=== PATIENT | female | born 1985 | race Hispanic/Latino ===

== ENCOUNTER 2018-02-26 05:07 | Inpatient (IN) | payer OTHER ==
[2018-02-25 17:00] LABS: Urine Appearance CLOUDY; Urine Bilirubin NEGATIVE (NEG); Urine Blood NEGATIVE (NEG); Urine Color YELLOW; Urine Glucose NEGATIVE (NEG); Urine Protein NEGATIVE (NEG); Urine Urobilinogen 0.2 mg/dL (0.2-1.0)
[2018-02-25 17:06] LABS: Absolute Lymphocytes (CBC) 2.8 K/uL (0.7-4.9); Absolute Monocytes 0.8 K/uL (0.1-1.3); Absolute Neutrophil 5.7 K/uL (1.8-8.0); Basophils % 0.2 % (0-1.3); Eosinophils % 0.6 % (0-4.4); Lymphocytes % 29.4 % (15.3-44.8); MPV 10.7 fL (7.6-11.3); RBC Red Blood Cell Count 3.71 M/uL (3.86-4.86)
[2018-02-25 17:15] LABS: Urine Microscopic Reflex ORDER UMIC
[2018-02-25 17:17] LABS: Protime INR 0.9
[2018-02-25 17:17] LABS: Urine Bacteria >50 /HPF (<20); Urine Culture Reflex Order REFLEXED; Urine RBC <5 /HPF (NONE SEEN)
--- NOTE | 2018-02-25 20:31 | PREOPHP ---
Date of Admission: 02/26/2018 History Of Present Illness: Sydney Valdez is a 33-year-old female, 4, para 2, AB1. Now by b est estimates ultrasound and Dr. Rae in [place], we think she is at 37 weeks, probably 37 weeks 1 day, tomorrow. She has twins with the first twin B in breech persistently and the first twin having oligohydramnios. She has had [facility] for lung maturity. These are both females and Dr. Rae has suggested delivery at this point. We will proceed with delivery. Full discussion with the patient about infection, blood loss, anesthetic complications, injury to bladder, bowel, ureter, post operative complications, clots in legs, and pneumonia. She knows fully well and this does not consti tute all the possible problems that could occur during or following surgery. We have discussed this on several occasions during her . Family History: Father with hypertension. Mother with diabetes. Allergies: SHE HAS NO ALLERGIES. Physical Examination: HEENT: Clear. Pupils equal, round, and reactive to light and accommodation. Conjunctivae well perf used. No oral, lingual, or buccal lesions. Chest and lungs: Clear. Heart: Without murmurs, thrills, heaves, or rubs. Breasts: Not examined. Abdomen: Very large of course with twins. Extremities: Have +2 or even +3 edema and she has significant varicosities. Cervix: 0.5 cm and the presenting part is again breech and well applied. We will proceed with opera tive delivery tomorrow morning. ARRON/LYNDA Voice ID: [id number]
[2018-02-26] MEDS ORDERED: Ringers Lactate 1,000 ML IV PRN (05:27)
[2018-02-26] MEDS ORDERED: NA CIT/CITRIC AC 30 ML ORAL UDC PO ONE (05:37)
[2018-02-26] MEDS ORDERED: FAMOTIDINE 20 MG/2 ML VIAL IV ONE (05:39)
[2018-02-26] MEDS ORDERED: Ringers Lactate 1,000 ML IV SCH (06:00)
[2018-02-26] MEDS ORDERED: METOCLOPRAMIDE 10 MG/2mL INJ IV SCH (06:00)
--- NOTE | 2018-02-26 07:09 | RAD REPORT ---
EXAM DESCRIPTION: RAD - Abdomen Single View - 02/26/2018 7:02 am CLINICAL HISTORY: Flat plate for position (twin gestation) Pain COMPARISON: No comparisons FINDINGS: The twin on the maternal right is in breech position. The twin on the maternal left appear s to be in a transverse AP position with the head projecting to the left of the lumbar spine.
[2018-02-26] MEDS ORDERED: CEFAZOLIN SODIUM 1 GM/VIAL ONE (07:23)
[2018-02-26] MEDS ORDERED: CEFAZOLIN/SWI 1gm 1 GM/10 ML SYR ONE ×2 (07:23→16:11)
[2018-02-26] MEDS ORDERED: CEFTRIAXONE 1000 MG/VIAL ONE (07:25)
[2018-02-26 07:27] VITALS: BMI 30.4
[2018-02-26] MEDS ORDERED: LIDOCAINE 1% MPF 5 ML VIAL ONE (07:30)
[2018-02-26] MEDS ORDERED: OXYTOCIN 10 UNIT/ML ML IV ONE (07:30)
[2018-02-26] MEDS ORDERED: MORPHINE SULFATE/PF 1 MG/ML (10 ML AMP) ONE (07:39)
[2018-02-26] MEDS ORDERED: CARBOPROST TROME 250 MCG/ML IM ONE (07:39)
[2018-02-26] MEDS ORDERED: METHYLERGONOVINE 0.2MG/ML AMP IM ONE (07:39)
[2018-02-26] MEDS ORDERED: BUPIVACAINE 0.75% (PF) 2 ML SP ONE (07:43)
[2018-02-26] MEDS ORDERED: Phenylephrine HCl 10 MG/ML 1 ML VIAL ONE (07:52)
[2018-02-26] MEDS ORDERED: NS 0.9% VIAL 10 ML ONE (07:52)
[2018-02-26] MEDS ORDERED: CEFAZOLIN/SWI 2gm 2 GM/20 ML SYR IV SCH (08:00)
[2018-02-26] MEDS ORDERED: KETOROLAC 30 MG/ML INJ IV PRN (08:25)
[2018-02-26] MEDS ORDERED: Oxycodone HCl/Acetaminophen 1 TAB TAB PO PRN (08:25)
[2018-02-26] MEDS ORDERED: DIPHENHYDRAMINE 25 MG TAB/CAP PO PRN (08:25)
[2018-02-26] MEDS ORDERED: ONDANSETRON 4 MG/2 ML VIAL IV PRN (08:25)
[2018-02-26] MEDS ORDERED: ACETAMINOPHEN 500 MG TAB PO PRN (08:25)
[2018-02-26] MEDS ORDERED: BISACODYL 10 MG RECTAL SUPP RECT PRN (08:25)
[2018-02-26] MEDS ORDERED: ONDANSETRON 4 MG (ODT) TAB PO PRN (08:25)
[2018-02-26] MEDS ORDERED: KETOROLAC 30 MG/ML INJ IM PRN (08:25)
[2018-02-26] MEDS ORDERED: D5LR 1,000 ML with OXYTOCIN 20 UNIT IV SCH ×2 (09:00)
[2018-02-26] MEDS ORDERED: OXYTOCIN/LR 20 UNIT/1,000 ML BAG IV SCH (09:00)
[2018-02-26] MEDS ORDERED: Ringers Lactate 2,000 ML IV ONE (13:04)
[2018-02-26] MEDS ORDERED: CEFAZOLIN/NS 1gm 1 GM/50 ML BAG IVPB ONE (16:00)
[2018-02-26] MEDS ORDERED: CEFAZOLIN/SWI 1gm 1 GM/10 ML SYR IVP SCH (17:00)
[2018-02-27] MEDS ORDERED: MAGNESIUM HYDROXIDE 8% 30 ML PO PRN (08:25)
--- NOTE | 2018-02-27 11:36 | PN ---
A 33-year-old multiparous female, with known twin gestation, presenting twin breech and with oligohyd ramnios, high risk. Dr. Rae suggested delivery at approximately 37 weeks. The patient underwent pr imary section, low transverse, cervical, spinal block anesthesia. Twin A, 6 pounds 2 ounces . Twin B, 5 pounds 10 ounces, both with Apgars about 9 and 9 at 1 and 5 minutes. Mild uterine hypot onus, 0.2 mg of Methergine IM. Estimated blood loss 1000 to 1100 cc. Ancef given for prophylaxis pr e and postoperatively. Postoperatively, the patient is afebrile. We will discontinue her IV and Fol ey. Begin p.o. intake. H and H with expected minimal change. If she continues to progress well, we will send her home tomorrow. Full dismissal summary given today, we will go over it again tomorrow. Her 2 daughters were in the room. The patient speaks limited Vietnamese, but we went over this in Eng kathi and Haitian. We will go over it again tomorrow. Doing well at this point. ARRON/LYNDA Voice ID: [id number] Report ID: [id number]
[2018-02-27] MEDS: Oxycodone HCl/Acetaminophen 1 TAB TAB PO PRN (20:30)
[2018-02-28] MEDS: Oxycodone HCl/Acetaminophen 1 TAB TAB PO PRN (07:30)
[2018-02-28 07:58] VITALS: BP 106/60; TEMP 97.9
[2018-02-28] MEDS ORDERED: Tdap (Diph,Pertuss(Acell),Tet Vac) 0.5 ML SYR IMVAC ONE (09:37)
--- NOTE | 2018-03-01 04:14 | DS ---
Date of Discharge: 02/28/2018 Hospital Course: Sydney Valdez is 33-year-old, 3, para 2, with twin gestation, at approximat pasquale 37 weeks and 1 day, first twin breech, second twin transverse. Patient underwent primary cesarea n section low transverse cervical, with delivery of twin A, 6 pound 2 ounce female, Apgars 9 and 9; t win B, converted to footling breech and delivered, 5 pounds 10 ounces, Apgars 9 and 9. The cord bloo d was obtained. Placenta was removed. Uterus exteriorized. Cervical os was dilated with ring clamp . Estimated blood loss during the procedure 1000 to 1100 cc. Mildly hypotonic. 0.2 mg of Methergin e IM. Ancef given for prophylaxis pre and postop. Dr. Wright in pediatric attendance. Babies hav e subsequently done quite well. The patient will be dismissed this morning to return to my office ne xt week for staple removal. To report any temperature elevation of 100 degrees or greater, severe pa in, heavy bleeding, or any other type of abnormalities. She is Rh positive, immune to Rubella. No p ost spinal block problems. Dismissed with tramadol for analgesia. She has had her Tdap immunization during the . Final Diagnoses: Intrauterine gestation, 37 weeks 1 day, primary section for twin delivery, spinal block anesthesia, mild uterine hypotonus. ARRON/LYNDA Voice ID: [id number] Report ID: [id number]
--- NOTE | 2018-03-04 18:26 | OP ---
Surgeon: Lewis Masters MD Indication: A 33-year-old, 3, para 2, twin gestation, first twin breech, second twin transve rse, approximately 37 weeks 1 day. primary section. Full preoperative counseling concernin g procedure and possible complications, including infection, blood loss, anesthetic complications, in jury to bladder, bowel, ureter, postoperative complications, clots in legs, pneumonia. Anesthesia: Spinal block anesthesia. Procedure In Detail: Time-out was performed. The patient was prepped and draped in the usual steril e manner. 2 g of Ancef given for prophylaxis. A low transverse uterine incision was created. Incis ion was carried to the fascia. Fascia was incised and incision carried transversely bilaterally. An terior fascial plane was developed with both blunt and sharp dissection. The underlying rectus muscl e was . Peritoneum entered bluntly. Low-transverse uterine incision created. A 6 pound 2 ounce female, Apgars 9 and 9 was delivered without difficulty. Twin B was then converted to a double footling breech and delivered quite easily, Apgars 9 and 9. Placenta was removed. uterus cleared O FF clot and blood and exteriorized. Uterus cleaned off all remaining membranes and placental tissues . Mild uterine hypotonus. 0.2 mg of Methergine IM. estimated blood loss 1100 cc during the procedur e. Uterus closed with a running-locked stitch of 1 chromic. Gutters were cleared of clot and blood. Uterus was replaced in the peritoneal cavity. No further bleeding seen. Muscles reapproximated wi th 0 Vicryl interrupted sutures. The fascia was closed with 1 Vicryl running locked stitch from eith er angle to the midline. Subcutaneous tissue was closed with 2-0 plain. Absorbable elva placed a nd then metal elva placed. She tolerated all procedures well. She was transferred back to her ro in good condition. Final Diagnoses: Intrauterine twin gestation, 37 weeks 1 day, primary section with delivery of viable female twins, mild uterine hypotonus. Spinal block anesthesia. ARRON/LYNDA Voice ID: [id number] Report ID: [id number]
== END 2018-02-28 12:10 | disposition home or self-care (01) | DRG 765 ==
LOC: 2ND-WC 05:07
PROVIDERS: ADMIT Specialist; ATTEND Specialist
PROC: 10D00Z1 Extraction of Products of Conception, Low, Open Approach (ICD-10-PCS; principal; 2018-02-26 07:30)
DX: O41.03X1 Oligohydramnios, third trimester, fetus 1 (principal); O31.8X31 Other complications specific to multiple gestation, third trimester, fetus 1; O31.8X32 Other complications specific to multiple gestation, third trimester, fetus 2; O32.1XX1 Maternal care for breech presentation, fetus 1; O30.043 Twin pregnancy, dichorionic/diamniotic, third trimester; Z3A.37 37 weeks gestation of pregnancy; Z37.2 Twins, both liveborn; O62.2 Other uterine inertia; O32.2XX2 Maternal care for transverse and oblique lie, fetus 2
CPT/HCPCS: 36415; 74018; 81003; 81015; 85014; 85025; 85610; 85730; 86850; 86900; 86901; 87086; 87088; 88307; 90715; J0690; J2210; J2370; J2405; J2590; J2765

== ENCOUNTER 2019-09-11 05:53 | Inpatient (IN) | payer OTHER, SELFPAY ==
[2019-09-10 17:31] LABS: Absolute Lymphocytes (CBC) 1.8 K/uL (0.7-4.9); Basophils % 0.1 % (0-1.3); Lymphocytes % 20.1 % (15.3-44.8); MPV 10.7 fL (7.6-11.3); RBC Red Blood Cell Count 3.79 M/uL (3.86-4.86)
[2019-09-10 17:33] LABS: Protime INR 0.93
[2019-09-10 18:09] LABS: Urine Appearance CLOUDY; Urine Bilirubin NEGATIVE (NEG); Urine Blood NEGATIVE (NEG); Urine Color YELLOW; Urine Glucose NEGATIVE (NEG); Urine Protein NEGATIVE (NEG); Urine Urobilinogen 0.2 mg/dL (0.2-1.0)
[2019-09-10 18:45] LABS: Urine Bacteria >50 /HPF (<20); Urine Culture Reflex Order REFLEXED; Urine Mucus 1+ /HPF (NONE SEEN); Urine RBC <5 /HPF (NONE SEEN)
--- NOTE | 2019-09-10 19:27 | PREOPHP ---
Date of Admission: 09/11/2019 History Of Present Illness: This is a 34-year-old multiparous female, 6, para 4, last pregna ncy twin delivery, 1 miscarriage, is now 40 weeks according to ultrasound done at 22 weeks were used and this is the best dates estimated for due date. Patient is having 5th female. We have discussed control. Right now, she wants to use something temporary such as a nonhormonal IUD a nd can change her mind later if she decides to have another child. She has had basically uneventful . Allergies: THERE ARE NO ALLERGIES. Family History: Father for hypertension. Mother with diabetes. Social History: Patient is nonsmoker. Physical Examination: General: Has had a 15 pounds weight gain during the . Abdomen: Quite large. Baby is quite low, vertex healthy babies. Cervix is fingertip. Baby is stil l high. Extremities: Clear without edema, cyanosis, or clubbing. Heart and Lungs: Clear. Breasts: Had been without masses on previous visits. Assessment And Plan: She wants her and 15-year-old daughter to be with her during surgery. I have no objection. We will proceed with repeat section tomorrow, infection, blood clots i n the legs, injury to internal organs, all have been discussed with the patient on previous visits an d some extent again today. ARRON/LYNDA Voice ID: [id number]
[2019-09-10 22:30] LABS: RPR (Rapid Plasma Reagin) NON-REACT (NON-REACT)
[2019-09-11] MEDS ORDERED: Ringers Lactate 1,000 ML IV PRN (05:55)
[2019-09-11] MEDS ORDERED: NA CIT/CITRIC AC 30 ML ORAL UDC PO ONE (06:00)
[2019-09-11] MEDS ORDERED: Ringers Lactate 1,000 ML IV SCH (06:00)
[2019-09-11] MEDS ORDERED: CEFAZOLIN 1GM (PREMIX IV) 1 GM/50 ML BAG IV SCH (06:00)
[2019-09-11] MEDS ORDERED: METOCLOPRAMIDE 10 MG/2mL INJ ONE (06:14)
[2019-09-11] MEDS ORDERED: NA CIT/CITRIC AC 30 ML ORAL UDC ONE (06:14)
[2019-09-11] MEDS ORDERED: FAMOTIDINE 20 MG/2 ML VIAL IV ONE ×2 (06:15→06:30)
[2019-09-11] MEDS ORDERED: METOCLOPRAMIDE 10 MG/2mL INJ IV SCH (06:30)
[2019-09-11 06:34] VITALS: BMI 28.9
[2019-09-11] MEDS ORDERED: EPHEDRINE SULF 50 MG/ML VIAL ONE (06:53)
[2019-09-11] MEDS ORDERED: FENTANYL CITR 250 MCG/5 ML ONE (06:53)
[2019-09-11] MEDS ORDERED: MORPHINE SULFATE/PF 1 MG/ML (10 ML AMP) ONE (06:53)
[2019-09-11] MEDS ORDERED: Phenylephrine HCl 10 MG/ML 1 ML VIAL ONE (06:53)
[2019-09-11] MEDS ORDERED: OXYTOCIN 10 UNIT/ML ML IV ONE (06:53)
[2019-09-11] MEDS ORDERED: LIDOCAINE 1% MPF 5 ML VIAL ONE (06:54)
[2019-09-11] MEDS ORDERED: CEFAZOLIN/SWI 2gm 2 GM/20 ML SYR ONE ×2 (06:54→15:56)
[2019-09-11] MEDS ORDERED: ONDANSETRON 4 MG/2 ML VIAL ONE (06:54)
[2019-09-11] MEDS ORDERED: NS 0.9% VIAL 20 ML ONE (06:54)
[2019-09-11] MEDS ORDERED: BUPIVACAINE 0.75% (PF) 2 ML SP ONE (06:54)
[2019-09-11] MEDS ORDERED: CEFAZOLIN 2 GM in NA CHLORIDE 0.9% 100 ML IVPB SCH (07:00)
[2019-09-11] MEDS ORDERED: METHYLERGONOVINE 0.2MG/ML AMP IM ONE (07:02)
[2019-09-11] MEDS ORDERED: CARBOPROST TROME 250 MCG/ML IM ONE (07:02)
[2019-09-11] MEDS: OXYTOCIN/LR 20 UNIT/1,000 ML BAG IV SCH ×2 (07:15→20:00)
[2019-09-11] MEDS ORDERED: BISACODYL 10 MG RECTAL SUPP RECT PRN (08:28)
[2019-09-11] MEDS ORDERED: KETOROLAC 30 MG/ML INJ IM PRN (08:28)
[2019-09-11] MEDS ORDERED: ONDANSETRON 4 MG/2 ML VIAL IV PRN (08:28)
[2019-09-11] MEDS ORDERED: KETOROLAC 30 MG/ML INJ IV PRN (08:28)
[2019-09-11] MEDS ORDERED: IBUPROFEN 600 MG TAB PO PRN (08:28)
[2019-09-11] MEDS ORDERED: DIPHENHYDRAMINE 25 MG TAB/CAP PO PRN (08:28)
[2019-09-11] MEDS ORDERED: ONDANSETRON 4 MG (ODT) TAB PO PRN (08:28)
[2019-09-11] MEDS ORDERED: ACETAMINOPHEN 500 MG TAB PO PRN ×2 (08:28)
[2019-09-11] MEDS ORDERED: INFLUENZA VACCINE (for 3y+) 0.5 ML DOSE IMVAC ONE (09:00)
[2019-09-11] MEDS ORDERED: D5LR 1,000 ML with OXYTOCIN 20 UNIT IV SCH ×2 (09:00)
[2019-09-11] MEDS ORDERED: CEFAZOLIN/SWI 2gm 2 GM/20 ML SYR IVP ONE (16:45)
[2019-09-11] MEDS: Oxycodone HCl/Acetaminophen 1 TAB TAB PO PRN (19:45)
[2019-09-12] MEDS: Oxycodone HCl/Acetaminophen 1 TAB TAB PO PRN ×3 (02:14→19:30)
--- NOTE | 2019-09-12 07:48 | PN ---
Postoperatively, the patient is doing quite well. H and H with expected change. Vital signs are nor mal. The patient has no complaints or problems this morning. Yesterday, it was noted that patient h ad blood in the urine prior to the surgery actually red at that point. During surgery, nothing unusu al was seen other than she had an extremely thin lower uterine segment, so it was obvious that we did not get near the bladder during the surgery as you can see the baby through the uterine wall. Posto peratively, the urine still is wilson colored, no bright red blood any more. Nonetheless, we will get a cystogram before we discontinue the Moscoso to make sure everything is okay. Otherwise, if normal, we will discontinue Moscoso and IV, start patient ambulation and anticipate if no problems home tomorro wRossana HELLER/LYNDA Voice ID: [id number] Report ID: [id number]
--- NOTE | 2019-09-12 07:51 | OP ---
Surgeon: Lewis Masters MD Director Of Catering: Dr. Sahni. Anesthesiologist: Dr. Elizalde and associates. Indications: A 34-year-old, 6, para 4, previous for twins, 40 weeks' gestation for repeat section. Infection, blood loss, anesthetic complications, injury to bladder, bowel, or ureter, postoperative complications, clots in legs, and pneumonia discussed. The patient knows f ully well this does not constitute all possible problems that could occur during or following surgery . Anesthesia: Spinal block anesthesia. Description Of Procedure: After time-out, the patient was prepped and draped and placed in the dorsa l supine position. It was noted that there was blood in the Moscoso catheter from insertion and this c ontinued throughout the surgery but did not increase. We suspected mild urethral irritation from the Moscoso insertion. After checking for adequate anesthesia, a Pfannenstiel incision was created over t he previous incision site. The incision was carried to the fascia. The fascia was incised and incis ion carried transversely bilaterally. Anterior and posterior fascial planes were developed with both blunt and sharp dissection. The underlying rectus muscles were . Peritoneum was entered. It was noted there was a very thin lower uterine segment and you could see the baby's hair and head through the incision. A low transverse incision was created well above the bladder and 7-pound 13-ou nce female was delivered without difficulties. Apgars 9 and 9 or possibly 9 and 10. Cord blood was obtained. Placenta was removed manually. Uterus was cleared of clot and blood and exteriorized. Th ere was noted to be significant arterial bleeder in the left angle. This was sutured with 1 chromic running locked stitch and another imbricating stitch for complete hemostasis. After the cervical os was dilated, the uterus was closed. No further bleeding was seen from the suture line. The gutters were cleared of clot and blood. Estimated blood loss was 1000 mL, possibly 1100 mL. Patient's admis giacomo hematocrit was 37. Normal vital signs throughout the procedure. Uterus was replaced in the per itoneal cavity. Muscles were reapproximated with 0 Vicryl interrupted sutures. The fascia was close d with 1 Vicryl running locked stitch from either angle to the midline. Subcutaneous tissue closed w ith 2-0 plain running locked stitch. Absorbable elva were placed and then metal elva. Patient had been given 2 g of Ancef for prophylaxis. Tolerated all procedures well. Transferred back to [facility] room in good condition. Final Diagnoses: Term intrauterine , repeat section, spinal block anesthesia. Mil d hematuria noted prior to surgery. If this continues, we will get a cystogram, but as I have stated , the blood was in the urine prior to the procedure and did not really change afterwards, and at this point, I do not suspect bladder injury. ARRON/LYNDA Voice ID: [id number] Report ID: [id number]
[2019-09-12] MEDS: MAGNESIUM HYDROXIDE 8% 30 ML PO PRN ×2 (09:45→22:01)
--- NOTE | 2019-09-12 12:33 | RAD REPORT ---
EXAM DESCRIPTION: RAD - Cystography - 09/12/2019 12:14 pm CLINICAL HISTORY: blood in urine Pelvic pain COMPARISON: No comparisons FINDINGS: The urinary bladder was filled with contrast the existing Moscoso catheter. Multiple project ions of the urinary bladder were performed showing normal contour without evidence of leakage. As the bladder was slowly empty, no leak was present. No postvoid residual seen. Total fluoro time: 1 minutes 27 seconds. Seven fluoroscopic spot images were obtained. IMPRESSION: Normal cystogram.
[2019-09-13 04:33] VITALS: TEMP 98.7
[2019-09-13] MEDS: Oxycodone HCl/Acetaminophen 1 TAB TAB PO PRN (07:28)
[2019-09-13 07:31] VITALS: BP 101/58
[2019-09-13] MEDS ORDERED: INFLUENZA VACCINE (for 3y+) 0.5 ML DOSE IMVAC ONE (07:55)
[2019-09-15 03:39] LABS: HBsAG Nonreactive (Nonreactive)
--- NOTE | 2019-09-15 14:24 | DS ---
Date of Discharge: 09/13/2019 Sydney Valdez, 34-year-old, 6, para 4, history of twins with repeat section on last delivery for repeat section at 40 weeks. Patient underwent repeat section. Spinal block anesthesia. Delivery of a 7 pounds, 13-ounce female. Apgars 9 and 9. Very thin lower uterin e segment. In fact, the baby's care could be seen through the incision prior to the incision on the uterus. There was noted to be blood in the catheter prior to the procedure and afterwards the bleedi ng stopped from the bladder but a cystogram was done just to verify no injury. In fact normal cystog sonya was obtained. Patient has done quite well. She is ambulating, voiding. Lochia is normal. Will be dismissed later this morning to report back to my office next week for staple removal. To report any temperature elevation of 100 degrees or greater, severe pain, heavy bleeding, or any other type of abnormalities. Dismissed with tramadol for analgesia. She has had her Tdap immunization. She ferreira s no post spinal block problems. Estimated blood loss was 1000 cc. H and H with minimal change. Final Diagnoses: Term intrauterine , repeat section, spinal block anesthesia. NBC/MODL Voice ID: [id number] Report ID: [id number]
== END 2019-09-13 09:50 | disposition home or self-care (01) | DRG 788 ==
LOC: 2ND-WCNRSY 05:53 → 2ND-WC 06:26
PROVIDERS: ADMIT Specialist; ATTEND Specialist
PROC: 10D00Z1 Extraction of Products of Conception, Low, Open Approach (ICD-10-PCS; principal; 2019-09-11 07:30)
DX: O34.211 Maternal care for low transverse scar from previous cesarean delivery (principal); Z3A.40 40 weeks gestation of pregnancy; Z37.0 Single live birth; R31.9 Hematuria, unspecified; O75.89 Other specified complications of labor and delivery; Z23 Encounter for immunization
CPT/HCPCS: 36415; 51600; 74430; 81001; 85014; 85025; 85610; 85730; 86592; 86850; 86900; 86901; 87086; 87088; 87340; 88307; 90471; J0690; J2210; J2370; J2405; J2590; J2765; J3010; J7120; J7121; Q2035